=== PATIENT | female | born 1965 | race African-American/Black ===

== ENCOUNTER 2017-09-19 09:37 | Emergency (ER) | payer SELFPAY ==
[2017-09-19] MEDS ORDERED: methylPREDNISolone Acetate 40 mg/ml Vial ONE (10:10)
== END 2017-09-19 10:34 | disposition home or self-care (01) ==
LOC: NAV ERS 09:37
DX: J20.9 Acute bronchitis, unspecified (principal); J44.9 Chronic obstructive pulmonary disease, unspecified; Z87.891 Personal history of nicotine dependence; Z79.899 Other long term (current) drug therapy
CPT/HCPCS: 94640; 96372; J1030; J7620

== ENCOUNTER 2017-11-28 16:29 | Emergency (ER) | payer SELFPAY ==
[~2017-11-28 16:29] MED LIST: Iopamidol 370 76% 100 ML VIAL ONE
[2017-11-28] MEDS ORDERED: Albuterol Sulfate 2.5 mg/3 ml Neb ONE (17:03)
[2017-11-28] MEDS ORDERED: methylPREDNISolone Sod Succ/PF 125 MG/2 ML VIAL ONE (17:03)
[2017-11-28 17:04] LABS: #Basophils 0.1 thou/uL (0.0-0.2); #Eosinphils 0.7 thou/uL (0.0-0.7); #Lymphocytes 2.3 thou/uL (1.20-3.40); #Monocytes 0.5 thou/uL (0.11-0.59); #Neutrophils 4.1 thou/uL (1.40-6.50); %Basophils 1.8 % (0.0-1.0); %Eosinophils 9.2 % (0.0-10.0); %Lymphocytes 29.5 % (21.0-51.0); %Monocytes 6.7 % (0.0-10.0); %Neutrophils 52.8 % (42.0-75.0); Hemoglobin 14.4 g/dL (12.0-16.0); Mean Corpuscular Hemoglobin 27.5 pg (27.0-31.0); Mean Corpuscular Volume 88.7 fL (78.0-98.0); Mean Platelet Volume 8.3 fL (7.4-10.4); Platelet Count 228 thou/uL (130-400); RBC Distribution Width 15.2 % (11.5-14.5); Red Blood Cell (RBC) Count 5.22 mill/uL (4.20-5.40); White Blood Cell (WBC) Count 7.8 thou/uL (4.8-10.8)
[2017-11-28 17:24] LABS: ALT (SGPT) 14 U/L (8-55); AST (SGOT) 15 U/L (5-34); Albumin 4.1 g/dL (3.5-5.0); Alkaline Phosphatase 98 U/L (40-150); Anion Gap 14 mmol/L (10-20); BUN (Urea Nitrogen) 9 mg/dL (9.8-20.1); Bilirubin, Total 0.4 mg/dL (0.2-1.2); Calc. Creatinine Clearance 0 mL/min (70-130); Calcium 9.6 mg/dL (7.8-10.44); Carbon Dioxide 21 mmol/L (22-29); Chloride 105 mmol/L (98-107); Estimated GFR-MDRD Greater than 90; Globulin 3.6 g/dL (2.4-3.5); Glucose 108 mg/dL (70-105); Lipase 12 U/L (8-78); Magnesium 2.2 mg/dL (1.6-2.6); Protein, Total 7.7 g/dL (6.0-8.3); Sodium 136 mmol/L (136-145)
--- NOTE | 2017-11-28 17:24 | RAD ---
PORTABLE AP CHEST X-RAY 11/28/17 HISTORY: Shortness of breath since last night. Worsening shortness of breath. COMPARISON: 07/15/15. FINDINGS: There is increased density to the right lung base which is thought to be related to overlying soft ti ssue artifact and the underpenetrated technique of the study. However, pneumonia or atelectasis right lung base cannot be excluded. Left lung is clear. The cardiac silhouette and pulmonary vasculature a re stable from the prior exam. No other interval change. IMPRESSION: Increased density right lung base most likely attributable to underpenetrated technique of the exam a nd overlying soft tissue density. However, developing pneumonia or atelectasis right lung base cannot be entirely excluded. Repeat chest x-ray with better depth of inspiration and PA technique would be helpful for further evaluation. POS: [facility]
[2017-11-28 17:28] LABS: Troponin I Less than 0.010 ng/mL (< 0.028)
[2017-11-28 17:51] LABS: Bilirubin Negative (Negative); Blood, Urine Trace (Negative); Clarity Clear (Clear); Glucose, Urine (Dipstick) Negative (Negative); Leukocyte Negative (Negative); Nitrite Negative (Negative); Protein, Urine (Dipstick) Negative (Neg-Trace); Urobilinogen 0.2 mg/dL (0.2-1.0)
[2017-11-28 17:59] LABS: Specific Gravity, Urine 1.005 (1.002-1.036)
[2017-11-28 18:00] LABS: Bacteria/HPF None Seen HPF (None Seen); RBC/HPF 0-3 HPF (0-3); Squamous Epithelial None Seen HPF (0-3); WBC/HPF None Seen HPF (0-3)
[2017-11-28] MEDS ORDERED: Azithromycin 250 MG TAB ONE (19:45)
--- NOTE | 2017-11-28 19:45 | CT ---
CT OF ABDOMEN AND PELVIS PERFORMED WITH CONTRAST ENHANCEMENT: 11/28/17 HISTORY: Shortness of breath. Has history of COPD. Notes left sided abdominal pain worsening for the last two days. The lung bases are clear of any infiltrative process. The liver, spleen, pancreas, and gallbladder regions all appear unremarkable. Right and left adrenal glands and right and left kidneys are normal in size. No significant periaorti c or mesenteric adenopathy. No signs of bowel obstruction. CT OF PELVIS PERFORMED WITH CONTRAST ENHANCEMENT: There is a right ovarian cyst measuring 3.2 cm, slightly larger than typically seen, particularly if the patient is postmenopausal. No free fluid. The appendix is normal. There is minimal diverticulosis of the descending and sigmoid colon. IMPRESSION: 1. Diverticulosis without inflammatory change. 2. 3.2 cm right ovarian cyst. This may be better investigated with ultrasound on a nonemergent basis, particularly if the patient is postmenopausal. POS: [facility]
[2017-11-28 20:15] LABS: Troponin I Less than 0.010 ng/mL (< 0.028)
== END 2017-11-28 20:34 | disposition home or self-care (01) ==
LOC: NAV ERS 16:29
DX: J44.1 Chronic obstructive pulmonary disease with (acute) exacerbation (principal); R10.12 Left upper quadrant pain; F17.210 Nicotine dependence, cigarettes, uncomplicated; Z79.899 Other long term (current) drug therapy
CPT/HCPCS: 71045; 74177; 80053; 81003; 81015; 82553; 83605; 83690; 83735; 83880; 84484; 85025; 85379; 87040; 87086; 93005; 94640; 94760; 96374; J2930; J7611; J7620

== ENCOUNTER 2018-01-01 07:23 | Emergency (ER) | payer SELFPAY ==
[2018-01-01] MEDS ORDERED: methylPREDNISolone Sod Succ/PF 125 MG/2 ML VIAL ONE (07:45)
[2018-01-01 08:19] LABS: #Basophils 0.2 thou/uL (0.0-0.2); #Eosinphils 0.8 thou/uL (0.0-0.7); #Lymphocytes 2.9 thou/uL (1.20-3.40); #Monocytes 0.6 thou/uL (0.11-0.59); #Neutrophils 7.1 thou/uL (1.40-6.50); %Basophils 1.7 % (0.0-1.0); %Lymphocytes 24.9 % (21.0-51.0); %Monocytes 4.9 % (0.0-10.0); %Neutrophils 61.5 % (42.0-75.0); Mean Corpuscular HGB CONC 31.8 g/dL (32.0-36.0); Mean Platelet Volume 7.8 fL (7.4-10.4); Platelet Count 368 thou/uL (130-400); RBC Distribution Width 14.9 % (11.5-14.5); Red Blood Cell (RBC) Count 5.02 mill/uL (4.20-5.40); White Blood Cell (WBC) Count 11.6 thou/uL (4.8-10.8)
[2018-01-01 08:28] LABS: ALT (SGPT) 18 U/L (8-55); AST (SGOT) 19 U/L (5-34); Albumin 4.1 g/dL (3.5-5.0); Alkaline Phosphatase 121 U/L (40-150); Anion Gap 14 mmol/L (10-20); BUN (Urea Nitrogen) 9 mg/dL (9.8-20.1); Bilirubin, Total 0.3 mg/dL (0.2-1.2); CK (CPK) 86 U/L (29-168); Calc. Creatinine Clearance 0 mL/min (70-130); Carbon Dioxide 26 mmol/L (22-29); Chloride 100 mmol/L (98-107); Estimated GFR-MDRD Greater than 90; Globulin 4.6 g/dL (2.4-3.5); Glucose 105 mg/dL (70-105); Potassium 4.3 mmol/L (3.5-5.1); Protein, Total 8.7 g/dL (6.0-8.3); Sodium 136 mmol/L (136-145)
[2018-01-01] MEDS ORDERED: Aspirin 325 MG TAB ONE (08:29)
[2018-01-01] MEDS ORDERED: Levofloxacin 500 mg/D5W 100 ml Premix Bag ONE (08:29)
[2018-01-01 08:30] LABS: CKMB 2.1 ng/mL (0-6.6); Troponin I Less than 0.010 ng/mL (< 0.028)
[2018-01-01] MEDS ORDERED: Magnesium Sulfate 2 GM/NS 0.9% 50 ML BAG ONE (08:33)
[2018-01-01] MEDS ORDERED: cefTRIAXone\\ROCEPHIN 1 GM VIAL ONE (08:33)
[2018-01-01] MEDS ORDERED: Iopamidol 370 76% 100 ML VIAL ONE (09:00)
[2018-01-01 09:07] LABS: Bilirubin Negative (Negative); Blood, Urine Trace (Negative); Clarity Clear (Clear); Glucose, Urine (Dipstick) Negative (Negative); Leukocyte Negative (Negative); Nitrite Negative (Negative); Protein, Urine (Dipstick) Negative (Neg-Trace); Urobilinogen 0.2 mg/dL (0.2-1.0); pH, Urine 5.5 (5.0-9.0)
[2018-01-01 09:11] LABS: Specific Gravity, Urine Greater than 1.035 (1.002-1.036)
[2018-01-01 09:13] LABS: Bacteria/HPF None Seen HPF (None Seen); RBC/HPF 0-3 HPF (0-3); Squamous Epithelial 0-3 HPF (0-3); WBC/HPF None Seen HPF (0-3)
--- NOTE | 2018-01-01 09:21 | CT ---
CTA CHEST WITH CONTRAST: Date; 01/01/18 COMPARISON: None. HISTORY: Chest pain and dyspnea. TECHNIQUE: Multiple contiguous axial images were obtained in a CTA of the chest with contrast per pulmonary embo lism protocol. 3D oblique MIP reformats and direct coronal reformats were performed. FINDINGS: Emphysematous changes are seen in the lungs. No pneumothorax or pleural effusion seen. No focal infil trates or suspicious pulmonary nodules are present. The pulmonary arteries are well opacified without filling defects to suggest pulmonary emboli. The he art is normal in size without focal cardiac abnormality. No hilar or mediastinal lymphadenopathy seen . Degenerative changes are seen in the spine. The visualized subdiaphragmatic structures and chest wall soft tissues are unremarkable. IMPRESSION: No evidence of pulmonary thromboembolism. POS: [facility]
--- NOTE | 2018-01-01 09:21 | RAD ---
SINGLE VIEW CHEST: Date: 01/01/18 COMPARISON: 11/28/17. HISTORY: Dyspnea and low oxygen saturation. FINDINGS: Single view of the chest shows a normal sized cardiomediastinal silhouette. There is no evidence of c onsolidation, mass, or pleural effusion. The bones are unremarkable. IMPRESSION: No evidence of acute cardiopulmonary disease. POS: [facility]
== END 2018-01-01 10:08 | disposition short-term general hospital (02) ==
LOC: NAV ERS 07:23
DX: J44.1 Chronic obstructive pulmonary disease with (acute) exacerbation (principal); Z87.891 Personal history of nicotine dependence; Z86.718 Personal history of other venous thrombosis and embolism; Z79.899 Other long term (current) drug therapy
CPT/HCPCS: 36415; 71045; 71275; 80053; 81003; 81015; 82550; 82553; 83605; 84484; 85025; 87040; 87086; 87804; 93005; 94640; 94760; 96365; 96375; J0696; J1956; J2930; J3475; J7620

== ENCOUNTER 2019-03-21 07:45 | Emergency (ER) | payer SELFPAY ==
--- NOTE | 2019-03-21 08:37 | RAD ---
RADIOGRAPH CHEST 1 VIEW: HISTORY: 53-year-old female with dyspnea and cough, with fever. FINDINGS: There are no air space densities, pulmonary edema, pneumothorax, or cardiomegaly. The lateral costop hrenic angles are sharp. IMPRESSION: No acute cardiopulmonary findings. jn [] POS: [facility]
[2019-03-21] MEDS ORDERED: methylPREDNISolone Sod Succ/PF 125 MG/2 ML VIAL ONE (08:45)
[2019-03-21 08:46] LABS: ALT (SGPT) 14 U/L (8-55); AST (SGOT) 13 U/L (5-34); Albumin 3.5 g/dL (3.5-5.0); Alkaline Phosphatase 120 U/L (40-110); Anion Gap 13 mmol/L (10-20); BUN (Urea Nitrogen) 5 mg/dL (9.8-20.1); Bilirubin, Total 0.6 mg/dL (0.2-1.2); Calc. Creatinine Clearance 0 mL/min (70-130); Calcium 8.8 mg/dL (7.8-10.44); Carbon Dioxide 29 mmol/L (22-29); Chloride 96 mmol/L (98-107); Estimated GFR-MDRD Greater than 90; Globulin 4.1 g/dL (2.4-3.5); Glucose 143 mg/dL (70-105); Potassium 3.2 mmol/L (3.5-5.1); Protein, Total 7.6 g/dL (6.0-8.3); Sodium 135 mmol/L (136-145)
[2019-03-21] MEDS ORDERED: Potassium Chloride 20 MEQ TAB ONE (08:54)
[2019-03-21] MEDS ORDERED: Sodium Chloride 0.9% 1,000 ML ONE (08:55)
[2019-03-21 08:57] LABS: Hemoglobin 13.4 g/dL (12.0-16.0); Mean Corpuscular HGB CONC 31.6 g/dL (32.0-36.0); Mean Corpuscular Hemoglobin 27.3 pg (27.0-31.0); Mean Corpuscular Volume 86.5 fL (78.0-98.0); Mean Platelet Volume 8.1 fL (7.4-10.4); Platelet Count 222 thou/uL (130-400); RBC Distribution Width 14.1 % (11.5-14.5); Red Blood Cell (RBC) Count 4.92 mill/uL (4.20-5.40); White Blood Cell (WBC) Count 11.1 thou/uL (4.8-10.8)
[2019-03-21 08:58] LABS: Band 2 % (5-11); Eosinophils 1 % (0-10); Lymphocytes 11 % (21-51); MDiff Complete? YES; Monocytes 4 % (0-10); Neutrophil 82 % (42-75); Platelet Morphology Comment Appears Adequate
[2019-03-21] MEDS ORDERED: Iopamidol 370 76% 100 ML VIAL ONE (09:00)
[2019-03-21] MEDS ORDERED: Levofloxacin 500 mg/D5W 100 ml Premix Bag ONE (10:23)
--- NOTE | 2019-03-21 10:35 | CT ---
CT PULMONARY ANGIOGRAM WITH IV CONTRAST AND 3D POSTPROCESSING: Date: 03/21/2019 HISTORY: Dyspnea. COMPARISON: 01/01/18. FINDINGS: There is better opacification of the thoracic aorta compared to the pulmonary arteries. The attenuati on values in the main pulmonary artery measure 166 Hounsfield units and 210 Hounsfield units in the d escending thoracic aorta. The exam is nondiagnostic to evaluate for pulmonary embolism. No aneurysm or dissection of the thoracic aorta is seen. No pleural or pericardial effusions are iden tified. There are reticulonodular infiltrates in the anterior upper lobes, right greater than left, a nd patchy consolidation in the right middle lobe, lingula, and the lung bases (right greater than lef t). There are degenerative changes in the spine. A small hiatal hernia is present. IMPRESSION: 1. Exam is nondiagnostic for pulmonary embolism. 2. Lung infiltrates as above. POS: [facility]
== END 2019-03-21 10:46 | disposition short-term general hospital (02) ==
LOC: NAV ERS 07:45
DX: J18.9 Pneumonia, unspecified organism (principal); E87.6 Hypokalemia; R79.1 Abnormal coagulation profile; J44.9 Chronic obstructive pulmonary disease, unspecified; Z87.891 Personal history of nicotine dependence; Z86.718 Personal history of other venous thrombosis and embolism; Z79.51 Long term (current) use of inhaled steroids
CPT/HCPCS: 71045; 71275; 80053; 83605; 83880; 84484; 85025; 85379; 87040; 87081; 87430; 87804; 93005; 96361; 96365; 96375; J1956; J2930; J7050; J7620; Q9967

== ENCOUNTER 2020-01-06 07:42 | Emergency (ER) | payer SELFPAY | END 2020-01-06 08:15 | disposition home or self-care (01) | LOC: NAV ERS 07:42 | DX: T16.2XXA Foreign body in left ear, initial encounter (principal); F17.210 Nicotine dependence, cigarettes, uncomplicated; J44.9 Chronic obstructive pulmonary disease, unspecified; Z86.718 Personal history of other venous thrombosis and embolism; Z79.899 Other long term (current) drug therapy | CPT/HCPCS: 69200 ==

== ENCOUNTER 2020-01-18 14:26 | Observation (INO) | payer SELFPAY ==
--- NOTE | 2020-01-18 15:07 | RAD ---
XR Chest 1 View Portable HISTORY: Cough, fever COMPARISON: 12/29/2019 FINDINGS: The heart size is normal. The lungs are well expanded without focal areas of consolidation, pneumothorax or pleural effusions. IMPRESSION: No radiographic evidence of acute cardiopulmonary process.
[2020-01-18 15:15] LABS: #Basophils 0.1 thou/uL (0.0-0.2); #Eosinphils 1.2 thou/uL (0.0-0.7); #Lymphocytes 2.3 thou/uL (1.20-3.40); #Monocytes 0.8 thou/uL (0.11-0.59); #Neutrophils 3.9 thou/uL (1.40-6.50); %Basophils 1.2 % (0.0-1.0); %Eosinophils 14.1 % (0.0-10.0); %Lymphocytes 28.2 % (21.0-51.0); %Neutrophils 47.4 % (42.0-75.0); Differential Comment SCANNED; Hemoglobin 14.1 g/dL (12.0-16.0); Mean Corpuscular HGB CONC 31.1 g/dL (32.0-36.0); Mean Corpuscular Volume 90.1 fL (78.0-98.0); Mean Platelet Volume 8.4 fL (7.4-10.4); Platelet Count 169 thou/uL (130-400); RBC Distribution Width 14.6 % (11.5-14.5); Red Blood Cell (RBC) Count 5.04 mill/uL (4.20-5.40); White Blood Cell (WBC) Count 8.3 thou/uL (4.8-10.8)
[2020-01-18 15:17] LABS: ALT (SGPT) 15 U/L (8-55); AST (SGOT) 17 U/L (5-34); Albumin 3.7 g/dL (3.5-5.0); Alkaline Phosphatase 98 U/L (40-110); Anion Gap 12 mmol/L (10-20); BUN (Urea Nitrogen) 5 mg/dL (9.8-20.1); Bilirubin, Total 0.2 mg/dL (0.2-1.2); Calc. Creatinine Clearance 0 mL/min (70-130); Calcium 8.9 mg/dL (7.8-10.44); Carbon Dioxide 29 mmol/L (22-29); Chloride 101 mmol/L (98-107); Estimated GFR-MDRD Greater than 90; Globulin 4.5 g/dL (2.4-3.5); Glucose 117 mg/dL (70-105); Potassium 3.8 mmol/L (3.5-5.1); Protein, Total 8.2 g/dL (6.0-8.3); Sodium 138 mmol/L (136-145)
[2020-01-18 15:27] LABS: Bilirubin Negative (Negative); Blood, Urine Trace (Negative); Clarity Clear (Clear); Glucose, Urine (Dipstick) Negative (Negative); Ketone, Urine Negative (Negative); Leukocyte Negative (Negative); Nitrite Negative (Negative); Protein, Urine (Dipstick) Negative (Neg-Trace); Specific Gravity, Urine 1.015 (1.005-1.030); Urobilinogen 0.2 mg/dL (Less than 2); pH, Urine 6.5 (5.0-9.0)
[2020-01-18] MEDS ORDERED: Ventolin HFA Inhaler 60 PUFF INHALER ONE (15:35)
[2020-01-18] MEDS ORDERED: Sodium Chloride 0.9% 2,000 ML ONE (15:36)
[2020-01-18] MEDS ORDERED: Azithromycin 500 MG VIAL ONE (15:36)
[2020-01-18] MEDS ORDERED: Ipratropium Bromide 2.5 ml Neb ONE (15:36)
[2020-01-18] MEDS ORDERED: cefTRIAXone\\ROCEPHIN 2 GM VIAL ONE (15:36)
[2020-01-18] MEDS ORDERED: methylPREDNISolone Sod Succ 40 MG VIAL ONE (15:36)
[2020-01-18] MEDS ORDERED: Sodium Chloride 0.9% 250 ML 250 ML ONE (15:37)
[2020-01-18] MEDS ORDERED: Sodium Chloride 0.9% 100 ML ONE (15:37)
[2020-01-18 16:04] LABS: RBC/HPF 0-3 HPF (0-3); Squamous Epithelial 0-3 HPF (0-3); WBC/HPF 0-3 HPF (0-3)
[2020-01-18 17:46] VITALS: BMI 32.5
[2020-01-18] MEDS ORDERED: Ipratropium Bromide 2.5 ml Neb NEB SCH (18:00)
[2020-01-18] MEDS: predniSONE 20 MG TAB PO SCH (20:58)
[2020-01-18] MEDS: Mometasone/Formoterol 200/5 60 PUFF INH SCH (20:59)
[2020-01-18] MEDS: guaiFENesin ER 600 MG TAB PO SCH (20:59)
[2020-01-18] MEDS: Montelukast Sodium 10 mg Tablet PO SCH (20:59)
[2020-01-18] MEDS ORDERED: Ventolin HFA Inhaler 60 PUFF INHALER INH SCH (21:00)
[2020-01-18] MEDS: Acetaminophen 325 MG TAB PO PRN (23:45)
[2020-01-18] MEDS: Benzonatate 100 MG CAP PO PRN (23:45)
[2020-01-19] MEDS: Benzonatate 100 MG CAP PO PRN ×3 (06:03→20:07)
[2020-01-19] MEDS: Ipratropium/Albuterol Sulfate 4 GM AER IH SCH ×3 (07:12→11:54)
[2020-01-19] MEDS: guaiFENesin ER 600 MG TAB PO SCH ×2 (07:48→20:07)
[2020-01-19] MEDS: predniSONE 20 MG TAB PO SCH ×2 (07:48→20:08)
[2020-01-19] MEDS: Mometasone/Formoterol 200/5 60 PUFF INH SCH ×2 (08:03→21:00)
[2020-01-19] MEDS ORDERED: predniSONE 20 MG TAB PO SCH (10:15)
[2020-01-19 12:11] LABS: SARS-CoV-2 MS2 Positive; SARS-CoV-2 N Gene Negative; SARS-CoV-2 S Gene Negative; SARS-CoV-2 by NAA Not Detected (NotDetected); SARS-CoV-2 orf1ab Negative
--- NOTE | 2020-01-19 14:05 | HP ---
HISTORY OF PRESENT ILLNESS: Ms. Gerard is a 54-year-old black female, who presented to the emergency room yesterday with 4 days of what she thinks is a flare of her COPD. She has cough. She has achiness all over. She has been coughing so hard that she has midsternal chest pain. She complains of a fever of 101 to a max yesterday and some chills along with headache. She had diarrhea twice. She vomited also twice with she states small specks of blood. She was brought to the emergency room and evaluated and felt that she had acute exacerbation of her COPD, but she may also have COVID. She was admitted to the hospital for treatment, while we await also what her COVID testing reveals. Vital signs this morning revealed blood pressure 141/104, previously early this morning 123/60, prior to that 159/69. Blood pressure goes up any time she is coughing a lot. Pulse 79 to 96. Respirations 18 to 22. She was 22 when she came in. She was 18 this morning. T-max is 98.6. She is on 3 L of nasal cannula. PAST MEDICAL HISTORY: 1. Reveals the patient has long history of COPD. 2. The patient was previously a tobacco smoker. 3. The patient has had a history of chronic hypoxic respiratory failure in the past and she is on chronic oxygen supplementation at home. 4. Prior history of long ago of cocaine use, which she denies at this time. 5. Chronic hepatitis C. 6. Generalized weakness. PAST SURGICAL HISTORY: 1. Prior . 2. Prior D and C. PRESENT MEDICATIONS: Reveal the patient has the following medications. 1. She has DuoNebs, which she takes p.r.n. 2. Albuterol handheld nebulizers and/or inhalers. 3. Prednisone, which she takes typically 10 mg twice a day. ALLERGIES: REVEALS THE PATIENT IS ALLERGIC TO PENICILLIN. FAMILY HISTORY: Noncontributory. SOCIAL HISTORY: Reveals the patient quit smoking several years ago, it does not say exactly how many. She has rare alcohol intake. She does have a history of cocaine abuse in the distant past. REVIEW OF SYSTEMS: Reveals the patient admits to some fever up to 101 and some chills, but no night sweats. She complains of upper respiratory cough, cold, congestion, and runny nose. She denies change in vision or hearing. She denies any nosebleeds, but she does complain of stuffiness and runny nose. She denies any chest pain, palpitations, or orthopnea, but she does complain of dyspnea on exertion. Respiratory; she does have cough, cold, and some wheezing. She denies hemoptysis. Denies nausea, vomiting, diarrhea, constipation, bloody or black or tarry stools. She has had two episodes of diarrhea and two episodes of vomiting with what she calls little bitty specks of blood. She denies any abdominal pain. ; she denies urgency, frequency, dysuria, or nocturia. Musculoskeletal alberto, she states she just aches all over. Psychiatry; she denies anxiety, depression, or anger at this time. PHYSICAL EXAMINATION: GENERAL: This is a well-developed, morbidly obese, black female, in no apparent distress at this time. HEENT: Reveals normocephalic and nontraumatic cranium. Pupils are equally round and reactive to light. Extraocular movements intact. Conjunctivae reveal no significant injection except for possibly slight from coughing. No icterus is noted. Nose and throat are clear with runny nose. The patient has multiple dental caries and some missing teeth. NECK: Supple without masses, nodes, or bruits. No jugular venous distention is able to be appreciated. CHEST: Reveals coarse rhonchi anteriorly and posteriorly. She has no crackles, but she does have some wheezes, she states that are less than she was last night. HEART: Reveals a regular rate and rhythm without murmurs, gallops, or rubs. ABDOMEN: Morbidly obese, soft, nontender. Normal bowel sounds are noted in all 4 quadrants. No rebound or guarding is noted. : Deferred. EXTREMITIES: Reveal no clubbing, cyanosis, or edema. ASSESSMENT: 1. Most likely acute exacerbation of chronic obstructive pulmonary disease. 2. Possibility of COVID-19. 3. Former tobacco abuse. 4. History of chronic hypoxic respiratory failure, on chronic oxygen supplementation. 5. Generalized weakness. PLAN: 1. The patient has been started on steroids. The patient has been started on MDI inhalers of albuterol, Dulera, and Combivent. 2. The patient will continue on her Singulair 10 mg every evening. 3. The patient is started on Protonix 40 mg daily. 4. The patient is on prednisone 20 mg b.i.d. and the patient has a saline flushing. We will continue with supportive care this time and see if we can have this patient break her COPD exacerbation. We will await COVID-19 results. Job ID: [id number] MTDD
[2020-01-19] MEDS: Acetaminophen 325 MG TAB PO PRN (14:45)
[2020-01-19] MEDS: Montelukast Sodium 10 mg Tablet PO SCH (20:07)
[2020-01-20 07:32] VITALS: BP 142/67; TEMP 98.7
[2020-01-20] MEDS: predniSONE 20 MG TAB PO SCH (08:32)
[2020-01-20] MEDS: Mometasone/Formoterol 200/5 60 PUFF INH SCH (08:32)
[2020-01-20] MEDS: guaiFENesin ER 600 MG TAB PO SCH (08:32)
--- NOTE | 2020-01-21 01:40 | DIS ---
DATE OF ADMISSION: 01/18/2020 DATE OF DISCHARGE: 01/20/2020 Ms. Gerard is a well-developed, well-nourished, pleasant 54-year-old black female. She presented to the emergency room with 4 days of wheezing, cough, and shortness of breath. She is achy all over. She had some midsternal chest pain from a cough and she had a fever of 101 and chills. She also had a headache and she had diarrhea twice. She vomited twice, which she states there had small specks of blood from the amount of vomiting that she had. She was brought to the emergency room, thought to have acute exacerbation of COPD, but they could not rule out COVID. She has been to the hospital had a COVID swab. She was admitted to the [facility] respiratory rooms. She was given IV steroids, Solu-Medrol in the ER, hydration, and MDI inhalers. She was stabilized and actually did very well. This morning, she states she feels back to her normal, actually better than her normal baseline. She states she is not coughing as much. She is still a little wheezy, but that is very common for her. She states she feels good enough that she wants to go home. She states she actually feels better than her usual self. She does not have a primary care doctor because she is waiting on her disability to kick in. She did not realize that [facility] had financial sliding scale medical care and she will go there. 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 She is on oxygen at home at 2 L chronically. Most of her medications that she gets when she goes to the ER. PHYSICAL EXAMINATION: VITAL SIGNS: Today reveal blood pressure this morning 142/67, pulse 86 to 88, respirations 18 to 20, O2 saturation 93% to 98% on 2 L nasal cannula, T-max 98.7. GENERAL: This is a well-developed, well-nourished, obese black female, in no apparent distress at this time. HEENT: Normocephalic and nontraumatic cranium. Pupils are equally round and reactive. Extraocular movements are intact. Nose and throat are slightly dry, but clear. NECK: Supple without masses, nodes, or bruits. No jugular venous distention is noted. CHEST: Reveals occasional wheeze, which clears with cough. No rhonchi heard today. No crackles are noted. She states she is back to her baseline. HEART: Reveals a regular rate and rhythm without murmurs, gallops, or rubs. ABDOMEN: Morbidly obese, soft, and nontender. Normal bowel sounds are noted in all 4 quadrants. No rebound or guarding is noted. : Deferred. EXTREMITIES: Reveal no clubbing, cyanosis, or edema. Her laboratory while in the hospital was unremarkable. ASSESSMENT: 1. Acute exacerbation of chronic obstructive pulmonary disease. 2. Possibility of COVID-19 ruled out with a negative test. 3. Former tobacco abuser. 4. History of chronic hypoxic respiratory failure, on chronic oxygen supplementation 2 L per nasal cannula at home. 5. Generalized weakness. MEDICATIONS: The patient presently takes the following at home: 1. Prednisone 10 mg b.i.d. 2. Atrovent HFA 2 puffs 4 times a day as needed. 3. Tessalon Perles 100 mg q.4 hours p.r.n. 4. Albuterol HFA or Proventil 2 puffs q.6 hours p.r.n. 5. Albuterol nebulizer treatments q.6 hours p.r.n. 6. Mucinex 600 mg b.i.d. p.r.n. 7. Protonix 40 mg daily. 8. Singulair 10 mg every evening. 9. Dulera 1 puff b.i.d. PLAN: We had an extensive discussion with this patient, who states she does not have a primary care doctor. I did recommend that she go to [facility] where she can get good care and discount on her medications. She states she will definitely do that. She just did not realize that they were able to care for her. She states she has been getting all of her care through the ER. The patient is ready to go home and states she will call her sister to pick her up. She does have oxygen at home and she does have an oxygen bottle in her car to be used as needed. Job ID: [id number] MTDD
== END 2020-01-20 12:30 | disposition home or self-care (01) ==
LOC: NAV ERS 14:26 → NAV ACUTE 17:00
PROVIDERS: ADMIT Family Medicine; ATTEND Family Medicine
DX: J44.1 Chronic obstructive pulmonary disease with (acute) exacerbation (principal); J96.11 Chronic respiratory failure with hypoxia; R53.1 Weakness; R50.9 Fever, unspecified; R19.7 Diarrhea, unspecified; B18.2 Chronic viral hepatitis C; E66.01 Morbid (severe) obesity due to excess calories; Z68.32 Body mass index [BMI] 32.0-32.9, adult; Z79.51 Long term (current) use of inhaled steroids; Z87.891 Personal history of nicotine dependence; Z79.899 Other long term (current) drug therapy; Z88.0 Allergy status to penicillin; Z99.81 Dependence on supplemental oxygen; Z20.828 Contact with and (suspected) exposure to other viral communicable diseases
CPT/HCPCS: 71045; 80053; 81003; 81015; 83605; 84484; 85025; 85379; 87040; 87149; 87635; 87804; 93005; 94640; 94760; 96365; 96367; 96375; G0378; J0456; J0696; J2920; J3490; J7050; J7512; J7620; U0003

== ENCOUNTER 2020-11-03 10:06 | Emergency (ER) | payer MEDICAID, OTHER ==
[2020-11-03] MEDS ORDERED: methylPREDNISolone Sod Succ/PF 125 MG/2 ML VIAL ONE (10:41)
[2020-11-03] MEDS ORDERED: Albuterol Sulfate 2.5 mg/3 ml Neb ONE (10:43)
[2020-11-03 10:47] LABS: #Basophils 0.1 thou/uL (0.0-0.2); #Lymphocytes 2.3 thou/uL (1.20-3.40); #Monocytes 0.5 thou/uL (0.11-0.59); %Basophils 0.9 % (0.0-1.0); %Eosinophils 8.9 % (0.0-10.0); %Lymphocytes 21.1 % (21.0-51.0); %Monocytes 4.7 % (0.0-10.0); %Neutrophils 64.4 % (42.0-75.0); Hemoglobin 14.6 g/dL (12.0-16.0); Mean Corpuscular HGB CONC 31.5 g/dL (32.0-36.0); Mean Corpuscular Hemoglobin 27.6 pg (27.0-31.0); Mean Corpuscular Volume 87.7 fL (78.0-98.0); Mean Platelet Volume 8.5 fL (7.4-10.4); Platelet Count 226 thou/uL (130-400); RBC Distribution Width 14.7 % (11.5-14.5); Red Blood Cell (RBC) Count 5.27 mill/uL (4.20-5.40); White Blood Cell (WBC) Count 10.9 thou/uL (4.8-10.8)
[2020-11-03 10:59] LABS: ALT (SGPT) 18 U/L (8-55); AST (SGOT) 14 U/L (5-34); Alkaline Phosphatase 85 U/L (40-110); Anion Gap 13 mmol/L (10-20); BUN (Urea Nitrogen) 8 mg/dL (9.8-20.1); Bilirubin, Total 0.4 mg/dL (0.2-1.2); Calc. Creatinine Clearance 0 mL/min (70-130); Calcium 9.5 mg/dL (7.8-10.44); Carbon Dioxide 28 mmol/L (22-29); Chloride 100 mmol/L (98-107); Globulin 4.2 g/dL (2.4-3.5); Glucose 217 mg/dL (70-105); Protein, Total 8.2 g/dL (6.0-8.3); Sodium 137 mmol/L (136-145)
[2020-11-03 11:12] LABS: Bilirubin Negative (Negative); Blood, Urine Trace (Negative); Clarity Clear (Clear); Glucose, Urine (Dipstick) 100 mg/dL (Negative); Ketone, Urine Negative (Negative); Leukocyte Negative (Negative); Nitrite Negative (Negative); Protein, Urine (Dipstick) Negative (Neg-Trace); Specific Gravity, Urine 1.015 (1.005-1.030); pH, Urine 6.5 (5.0-9.0)
[2020-11-03 11:23] LABS: RBC/HPF 0-3 HPF (0-3); Squamous Epithelial 0-3 HPF (0-3); WBC/HPF 0-3 HPF (0-3)
[2020-11-03] MEDS ORDERED: Sodium Chloride 0.9% 0 ML ONE (11:26)
[2020-11-03] MEDS ORDERED: Sodium Chloride 0.9% 1,000 ML ONE (11:26)
[2020-11-03] MEDS ORDERED: Sulfameth/Trimethoprim DS 800-160mg TAB ONE (12:04)
[2020-11-03] MEDS ORDERED: Azithromycin 250 MG TAB ONE (12:04)
[2020-11-04 23:58] LABS: SARS-CoV-2 PCR by NAA Not Detected (NotDetected)
== END 2020-11-03 12:45 | disposition home or self-care (01) ==
LOC: NAV ERS 10:06
DX: J44.1 Chronic obstructive pulmonary disease with (acute) exacerbation (principal); L03.012 Cellulitis of left finger; R60.0 Localized edema; F17.210 Nicotine dependence, cigarettes, uncomplicated; Z20.822 Contact with and (suspected) exposure to COVID-19; Z86.718 Personal history of other venous thrombosis and embolism; Z79.82 Long term (current) use of aspirin; Z79.899 Other long term (current) drug therapy
CPT/HCPCS: 71045; 80053; 81003; 81015; 83605; 83735; 83880; 84484; 85025; 85379; 87070; 87077; 87186; 87205; 93005; 94640; 94760; 96374; J2930; J7030; J7050; J7611; J7620; U0003; U0005

== ENCOUNTER 2021-02-09 01:25 | Emergency (ER) | payer OTHER ==
[2021-02-09] MEDS ORDERED: methylPREDNISolone Sod Succ/PF 125 MG/2 ML VIAL ONE (01:39)
[2021-02-09] MEDS ORDERED: Nitroglycerin 0.4 MG TAB (25 Tab Bottle) ONE (01:46)
[2021-02-09] MEDS ORDERED: Aspirin Chewable 81 MG TAB ONE (01:46)
[2021-02-09 02:04] LABS: ALT (SGPT) 24 U/L (8-55); AST (SGOT) 19 U/L (5-34); Albumin 3.9 g/dL (3.5-5.0); Alkaline Phosphatase 134 U/L (40-110); Anion Gap 13 mmol/L (10-20); BUN (Urea Nitrogen) 7 mg/dL (9.8-20.1); Bilirubin, Total 0.3 mg/dL (0.2-1.2); Calc. Creatinine Clearance 0 mL/min (70-130); Calcium 9.5 mg/dL (7.8-10.44); Carbon Dioxide 27 mmol/L (22-29); Chloride 100 mmol/L (98-107); Globulin 4.2 g/dL (2.4-3.5); Glucose 192 mg/dL (70-105); Potassium 3.7 mmol/L (3.5-5.1); Protein, Total 8.1 g/dL (6.0-8.3); Sodium 136 mmol/L (136-145)
[2021-02-09] MEDS ORDERED: Levofloxacin 500 mg/D5W 100 ml Premix Bag ONE (02:22)
[2021-02-09 02:23] LABS: Hemoglobin 18.1 g/dL (12.0-16.0); Mean Corpuscular Hemoglobin 27.6 pg (27.0-31.0); Mean Platelet Volume 7.8 fL (7.4-10.4); Platelet Count 177 thou/uL (130-400); RBC Distribution Width 14.1 % (11.5-14.5); Red Blood Cell (RBC) Count 6.56 mill/uL (4.20-5.40); White Blood Cell (WBC) Count 11.1 thou/uL (4.8-10.8)
[2021-02-09 02:45] LABS: SARS-CoV-2 NAA Rapid Test Not Detected (NotDetected)
[2021-02-09] MEDS ORDERED: guaiFENesin ER 600 MG TAB ONE (03:45)
== END 2021-02-09 04:05 | disposition short-term general hospital (02) ==
LOC: NAV ERS 01:25
DX: J44.1 Chronic obstructive pulmonary disease with (acute) exacerbation (principal); J20.9 Acute bronchitis, unspecified; R07.9 Chest pain, unspecified; Z20.822 Contact with and (suspected) exposure to COVID-19; F17.200 Nicotine dependence, unspecified, uncomplicated; Z79.82 Long term (current) use of aspirin; Z79.899 Other long term (current) drug therapy
CPT/HCPCS: 71045; 80053; 83605; 83880; 84484; 85025; 85379; 87040; 87070; 87077; 87205; 93005; 94640; 94760; 96365; 96375; J1956; J2930; J7620; U0002

== ENCOUNTER 2021-04-11 10:23 | Emergency (ER) | payer OTHER | END 2021-04-11 11:21 | disposition left against medical advice (07) | LOC: NAV ERS 10:23 | DX: Z53.21 Procedure and treatment not carried out due to patient leaving prior to being seen by health care provider (principal) ==

== ENCOUNTER 2022-02-09 16:02 | Emergency (ER) | payer OTHER ==
[2022-02-09] MEDS ORDERED: methylPREDNISolone Sod Succ/PF 125 MG/2 ML VIAL ONE (16:24)
[2022-02-09] MEDS ORDERED: Magnesium 2 GM/50 ML BAG (IN WATER) ONE (16:24)
[2022-02-09] MEDS ORDERED: cefTRIAXone\\ROCEPHIN 2 GM VIAL ONE (16:41)
[2022-02-09] MEDS ORDERED: Sodium Chloride 0.9% 0 ML ONE (16:41)
[2022-02-09 16:48] LABS: #Basophils 0.2 thou/uL (0.0-0.2); #Lymphocytes 2.8 thou/uL (1.20-3.40); #Monocytes 0.4 thou/uL (0.11-0.59); #Neutrophils 6.2 thou/uL (1.40-6.50); %Basophils 1.7 % (0.0-1.0); %Eosinophils 9.5 % (0.0-10.0); %Lymphocytes 26.4 % (21.0-51.0); %Monocytes 4.2 % (0.0-10.0); %Neutrophils 58.3 % (42.0-75.0); Hemoglobin 14.9 g/dL (12.0-16.0); Mean Corpuscular HGB CONC 31.6 g/dL (32.0-36.0); Mean Corpuscular Hemoglobin 28.2 pg (27.0-31.0); Mean Corpuscular Volume 89.3 fl (78.0-98.0); Mean Platelet Volume 8.1 fL (7.4-10.4); Platelet Count 198 10x3/uL (130-400); Red Blood Cell (RBC) Count 5.27 mill/uL (4.20-5.40); White Blood Cell (WBC) Count 10.6 10x3/uL (4.8-10.8)
[2022-02-09] MEDS ORDERED: diphenhydrAMINE 50 MG/ML VIAL ONE (16:58)
[2022-02-09 17:00] LABS: ALT (SGPT) 26 U/L (8-55); AST (SGOT) 23 U/L (5-34); Albumin 4.2 g/dL (3.5-5.0); Alkaline Phosphatase 87 U/L (40-110); Anion Gap 16 mmol/L (10-20); BUN (Urea Nitrogen) 11 mg/dL (9.8-20.1); Bilirubin, Total 0.9 mg/dL (0.2-1.2); Calc. Creatinine Clearance 0 mL/min (70-130); Calcium 10.1 mg/dL (7.8-10.44); Carbon Dioxide 26 mmol/L (22-29); Chloride 99 mmol/L (98-107); Estimated GFR 102; Globulin 4.2 g/dL (2.4-3.5); Glucose 127 mg/dL (70-105); Potassium 4.6 mmol/L (3.5-5.1); Protein, Total 8.4 g/dL (6.0-8.3); Sodium 136 mmol/L (136-145)
[2022-02-09] MEDS ORDERED: Sodium Chloride 0.9% 100 ML ONE (17:04)
[2022-02-09] MEDS ORDERED: Sterile Water 20 ML ONE (17:08)
[2022-02-09 17:45] LABS: SARS-CoV-2 NAA Rapid Test Not Detected (NotDetected)
[2022-02-09] MEDS ORDERED: Sodium Chloride 0.9% 250 ML 250 ML ONE (18:46)
[2022-02-09] MEDS ORDERED: Vancomycin HCl 500 MG VIAL ONE (18:46)
[2022-02-09] MEDS ORDERED: Vancomycin 1 GM VIAL ONE (18:46)
[2022-02-09 18:53] LABS: Bilirubin Negative (Negative); Blood, Urine Trace (Negative); Glucose, Urine (Dipstick) Negative (Negative); Ketone, Urine Negative (Negative); Leukocyte Moderate (Negative); Nitrite Negative (Negative); Protein, Urine (Dipstick) Negative (Neg-Trace)
[2022-02-09 19:03] LABS: Clarity SL HAZY (Clear); RBC/HPF 0-3 HPF (0-3); Squamous Epithelial 0-3 HPF (0-3); Trichomonas/HPF 2+ HPF (None Seen)
[2022-02-09] MEDS ORDERED: guaiFENesin/Codeine 200 mg/20 mg 10 ml Cup PO SCH (19:15)
[2022-02-09] MEDS ORDERED: metroNIDAZOLE 500 MG TAB ONE (19:45)
[2022-02-09] MEDS ORDERED: Ondansetron PF 4 MG/2 ML Vial ONE (19:45)
== END 2022-02-09 21:57 | disposition short-term general hospital (02) ==
LOC: NAV ERS 16:02
DX: J44.1 Chronic obstructive pulmonary disease with (acute) exacerbation (principal); J96.91 Respiratory failure, unspecified with hypoxia; A59.9 Trichomoniasis, unspecified; I10 Essential (primary) hypertension; Z20.822 Contact with and (suspected) exposure to COVID-19
CPT/HCPCS: 71045; 80053; 81003; 81015; 83605; 83880; 84484; 85025; 87040; 87086; 93005; 96365; 96367; 96368; 96375; J0696; J1200; J2405; J2930; J3370; J3475; J3490; J7050; J7620

== ENCOUNTER 2022-07-10 18:04 | Emergency (ER) | payer OTHER ==
[2022-07-10] MEDS ORDERED: Magnesium 2 GM/50 ML BAG (IN WATER) ONE (18:22)
[2022-07-10] MEDS ORDERED: Sodium Chloride 0.9% 1,000 ML ONE (18:22)
[2022-07-10] MEDS ORDERED: Ipratropium/Albuterol 3 ML NEB ONE (18:22)
[2022-07-10] MEDS ORDERED: methylPREDNISolone Sod Succ 40 MG VIAL ONE (18:22)
[2022-07-10 18:31] LABS: #Basophils 0.1 thou/uL (0.0-0.2); #Eosinphils 0.4 thou/uL (0.0-0.7); #Monocytes 0.4 thou/uL (0.11-0.59); #Neutrophils 3.8 thou/uL (1.40-6.50); %Basophils 1.3 % (0.0-1.0); %Eosinophils 5.3 % (0.0-10.0); %Lymphocytes 29.7 % (21.0-51.0); %Monocytes 5.9 % (0.0-10.0); %Neutrophils 57.8 % (42.0-75.0); Hemoglobin 15.5 g/dL (12.0-16.0); Mean Corpuscular HGB CONC 30.6 g/dL (32.0-36.0); Mean Corpuscular Hemoglobin 27.3 pg (27.0-31.0); Mean Platelet Volume 8.5 fL (7.4-10.4); Platelet Count 187 10x3/uL (130-400); RBC Distribution Width 14.2 % (11.5-14.5); Red Blood Cell (RBC) Count 5.67 mill/uL (4.20-5.40); White Blood Cell (WBC) Count 6.6 10x3/uL (4.8-10.8)
[2022-07-10 18:33] LABS: INR-International Normal Ratio 0.9; Prothrombin Time 12.3 sec (12.0-14.7)
[2022-07-10 18:36] LABS: D-Dimer Test 0.38 *mcg/mL (0.27-0.43)
[2022-07-10 18:41] LABS: ALT (SGPT) 9 U/L (8-55); AST (SGOT) 11 U/L (5-34); Albumin 4.3 g/dL (3.5-5.0); Alkaline Phosphatase 85 U/L (40-110); Anion Gap 13 mmol/L (10-20); BUN (Urea Nitrogen) 13 mg/dL (9.8-20.1); Bilirubin, Total 0.2 mg/dL (0.2-1.2); Calc. Creatinine Clearance 0 mL/min (70-130); Calcium 9.3 mg/dL (7.8-10.44); Carbon Dioxide 30 mmol/L (22-29); Chloride 101 mmol/L (98-107); Estimated GFR 89; Globulin 3.5 g/dL (2.4-3.5); Glucose 138 mg/dL (70-105); Potassium 4.1 mmol/L (3.5-5.1); Protein, Total 7.8 g/dL (6.0-8.3); Sodium 140 mmol/L (136-145)
== END 2022-07-10 20:00 | disposition home or self-care (01) ==
LOC: NAV ERS 18:04
DX: J44.1 Chronic obstructive pulmonary disease with (acute) exacerbation (principal); I10 Essential (primary) hypertension; E78.5 Hyperlipidemia, unspecified; F17.210 Nicotine dependence, cigarettes, uncomplicated; Z20.822 Contact with and (suspected) exposure to COVID-19
CPT/HCPCS: 71045; 80053; 83605; 83880; 84484; 85025; 85379; 85610; 85730; 87040; 87804; 93005; 96365; 96375; J2920; J3475; J7050; J7611; J7620; U0003; U0005

== ENCOUNTER 2024-02-08 17:37 | Emergency (ER) | payer MEDICAID, MEDICARE, OTHER ==
[2024-02-08] MEDS ORDERED: Acetaminophen 500 MG TAB ONE (17:45)
[2024-02-08] MEDS ORDERED: Ibuprofen 800 MG TAB ONE (17:45)
== END 2024-02-08 18:45 | disposition home or self-care (01) ==
LOC: NAV ERS 17:37
DX: J11.1 Influenza due to unidentified influenza virus with other respiratory manifestations (principal); F17.210 Nicotine dependence, cigarettes, uncomplicated; I10 Essential (primary) hypertension; J44.9 Chronic obstructive pulmonary disease, unspecified; Z79.899 Other long term (current) drug therapy
CPT/HCPCS: 87428; 99284

== ENCOUNTER 2024-03-06 06:59 | Emergency (ER) | payer MEDICARE, MEDICAID ==
[2024-03-06] MEDS ORDERED: Ipratropium/Albuterol 3 ML NEB ONE (07:17)
[2024-03-06] MEDS ORDERED: Dexamethasone 10 MG/ML VIAL ONE (07:17)
[2024-03-06] MEDS ORDERED: Albuterol 2.5 MG (0.5 mL) NEB ONE (07:17)
[2024-03-06] MEDS ORDERED: Magnesium 2 GM/50 ML BAG (IN WATER) ONE (07:18)
[2024-03-06] MEDS ORDERED: LevoFLOXacin 750 mg/D5W 150 ml Premix Bag ONE (07:18)
[2024-03-06] MEDS ORDERED: Sodium Chloride 0.9% 1,000 ML ONE ×2 (07:18→09:07)
[2024-03-06 07:35] LABS: #Basophils 0.1 thou/uL (0.0-0.2); #Eosinophils 0.3 thou/uL (0.0-0.7); #Lymphocytes 1.5 thou/uL (1.20-3.40); #Monocytes 0.8 thou/uL (0.11-0.59); #Neutrophils 3.9 thou/uL (1.40-6.50); %Basophils 1.9 % (0.0-1.0); %Eosinophils 5.2 % (0.0-10.0); %Monocytes 12.5 % (0.0-10.0); %Neutrophils 58.5 % (42.0-75.0); Hematocrit 45.2 % (36.0-47.0); Hemoglobin 13.9 g/dL (12.0-16.0); Mean Corpuscular HGB CONC 30.7 g/dL (32.0-36.0); Mean Corpuscular Hemoglobin 25.9 pg (27.0-31.0); Mean Corpuscular Volume 84.6 fl (78.0-98.0); Mean Platelet Volume 7.7 fL (7.4-10.4); Platelet Count 171 10x3/uL (130-400); Red Blood Cell (RBC) Count 5.34 mill/uL (4.20-5.40); White Blood Cell (WBC) Count 6.7 10x3/uL (4.8-10.8)
[2024-03-06 07:46] LABS: Troponin I Less than 0.010 ng/mL (< 0.028)
[2024-03-06 07:47] LABS: ALT (SGPT) 12 U/L (8-55); AST (SGOT) 16 U/L (5-34); Albumin 3.6 g/dL (3.5-5.0); Alkaline Phosphatase 76 U/L (40-110); Anion Gap 14 mmol/L (10-20); BUN (Urea Nitrogen) 8 mg/dL (9.8-20.1); Bilirubin, Total 0.6 mg/dL (0.2-1.2); Calc. Creatinine Clearance 0 mL/min (70-130); Calcium 9.3 mg/dL (7.8-10.44); Carbon Dioxide 24 mmol/L (22-29); Chloride 99 mmol/L (98-107); Estimated GFR 96; Globulin 4.2 g/dL (2.4-3.5); Glucose 194 mg/dL (70-105); Potassium 4.2 mmol/L (3.5-5.1); Protein, Total 7.8 g/dL (6.0-8.3); Sodium 133 mmol/L (136-145)
[2024-03-06 08:11] LABS: Bilirubin Negative (Negative); Blood, Urine Negative (Negative); Clarity Clear (Clear); Glucose, Urine (Dipstick) 100 mg/dL (Negative); Ketone, Urine Negative (Negative); Leukocyte Negative (Negative); Nitrite Negative (Negative); Protein, Urine (Dipstick) Negative (Neg-Trace)
[2024-03-06 08:14] LABS: Bacteria/HPF None Seen HPF (None Seen); CAUTI Indications for Culture Fever or rigors; RBC/HPF None Seen HPF (0-3); Squamous Epithelial None Seen HPF (0-3); WBC/HPF None Seen HPF (0-3)
[2024-03-06 08:15] LABS: Urine Culture Reflex No No
[2024-03-06] MEDS ORDERED: Acetaminophen 325 MG TAB ONE (08:22)
[2024-03-06] MEDS ORDERED: Sodium Chloride 0.9% 100 ML ONE (09:07)
[2024-03-06] MEDS ORDERED: Cefepime 2 GM VIAL ONE (09:07)
[2024-03-06] MEDS ORDERED: Benzocaine/Menthol 1 LOZ LOZ PO SCH (10:00)
== END 2024-03-06 16:00 | disposition short-term general hospital (02) ==
LOC: NAV ERS 06:59
DX: J44.0 Chronic obstructive pulmonary disease with (acute) lower respiratory infection (principal); J18.9 Pneumonia, unspecified organism; J44.1 Chronic obstructive pulmonary disease with (acute) exacerbation; F17.210 Nicotine dependence, cigarettes, uncomplicated; I10 Essential (primary) hypertension
CPT/HCPCS: 71045; 80053; 81001; 83605; 83880; 84484; 85025; 87040; 87086; 87428; 93005; 94644; J0692; J1100; J1956; J3475; J7030; 36415; 96365; 96367; 96375; J7611; J7620

== ENCOUNTER 2024-05-07 03:23 | Emergency (ER) | payer MEDICARE, MEDICAID ==
[2024-05-07] MEDS ORDERED: fentaNYL 50 mcg/mL 1 mL Vial ONE ×2 (03:46→06:11)
[2024-05-07] MEDS ORDERED: Ondansetron PF 4 MG/2 ML Vial ONE (03:47)
[2024-05-07 04:01] LABS: #Basophils 0.1 thou/uL (0.0-0.2); #Eosinophils 0.5 thou/uL (0.0-0.7); #Lymphocytes 2.4 thou/uL (1.20-3.40); #Monocytes 0.6 thou/uL (0.11-0.59); #Neutrophils 5.6 thou/uL (1.40-6.50); %Eosinophils 5.2 % (0.0-10.0); %Lymphocytes 26.1 % (21.0-51.0); %Monocytes 6.1 % (0.0-10.0); %Neutrophils 61.6 % (42.0-75.0); Hemoglobin 13.9 g/dL (12.0-16.0); Mean Corpuscular HGB CONC 31.7 g/dL (32.0-36.0); Mean Corpuscular Hemoglobin 26.3 pg (27.0-31.0); Mean Platelet Volume 9.4 fL (7.4-10.4); Platelet Count 189 10x3/uL (130-400); RBC Distribution Width 14.2 % (11.5-14.5); White Blood Cell (WBC) Count 9.1 10x3/uL (4.8-10.8)
[2024-05-07 04:16] LABS: Prothrombin Time 13.4 sec (12.0-14.7)
[2024-05-07 04:17] LABS: PTT 25.7 sec (22.9-36.1)
[2024-05-07 04:21] LABS: ALT (SGPT) 15 U/L (Less than 34); AST (SGOT) 24 U/L (11-34); Alkaline Phosphatase 81 U/L (40-110); Anion Gap 14 mmol/L (10-20); BUN (Urea Nitrogen) 7 mg/dL (9.8-20.1); Bilirubin, Total 0.9 mg/dL (0.3-1.2); Calc. Creatinine Clearance 0 mL/min (70-130); Calcium 9.6 mg/dL (7.8-10.44); Carbon Dioxide 23 mmol/L (22-29); Chloride 102 mmol/L (98-107); Estimated GFR 101; Globulin 4.1 g/dL (2.4-3.5); Glucose 117 mg/dL (70-105); Lipase 6 U/L (8-78); Protein, Total 8.1 g/dL (6.0-8.3); Sodium 135 mmol/L (136-145)
[2024-05-07] MEDS ORDERED: Ketorolac Tromethamine 30 MG (1 mL) VIAL ONE (05:26)
[2024-05-07] MEDS ORDERED: Cyclobenzaprine 10 MG TAB ONE (05:27)
[2024-05-07 06:15] LABS: Bilirubin Negative (Negative); Blood, Urine Negative (Negative); Clarity Clear (Clear); Glucose, Urine (Dipstick) Negative (Negative); Ketone, Urine Negative (Negative); Leukocyte Negative (Negative); Nitrite Negative (Negative); Protein, Urine (Dipstick) Negative (Neg-Trace)
[2024-05-07 06:26] LABS: Bacteria/HPF Rare-Few HPF (None Seen); CAUTI Indications for Culture Spinal Cord Injury; RBC/HPF 0-3 HPF (0-3); Squamous Epithelial 0-3 HPF (0-3); Urine Culture Reflex No No; WBC/HPF 0-3 HPF (0-3)
[2024-05-07] MEDS ORDERED: Iopamidol 370 76% 100 ML VIAL ONE (09:00)
== END 2024-05-07 08:41 ==
LOC: NAV ERS 03:23
DX: S22.088A Other fracture of T11-T12 vertebra, initial encounter for closed fracture (principal); S00.83XA Contusion of other part of head, initial encounter; S00.03XA Contusion of scalp, initial encounter; S20.212A Contusion of left front wall of thorax, initial encounter; S50.311A Abrasion of right elbow, initial encounter; I10 Essential (primary) hypertension; J44.9 Chronic obstructive pulmonary disease, unspecified; F17.210 Nicotine dependence, cigarettes, uncomplicated; Z79.51 Long term (current) use of inhaled steroids; V43.63XA Car passenger injured in collision with pick-up truck in traffic accident, initial encounter; Y93.89 Activity, other specified; Y92.410 Unspecified street and highway as the place of occurrence of the external cause
CPT/HCPCS: 36415; 70450; 71260; 72125; 74177; 80053; 81001; 83690; 85025; 85610; 85730; 96374; 96375; 96376; G0390; J1885; J2405; J3010; Q9967

== ENCOUNTER 2025-02-12 11:09 | Emergency (ER) | payer MEDICAID, MEDICARE ==
[2025-02-12] MEDS ORDERED: Albuterol 2.5 MG (0.5 mL) NEB ONE (11:33)
[2025-02-12 11:39] LABS: %Basophils 3.7 % (0.0-1.0)
[2025-02-12 11:40] LABS: #Basophils 0.2 thou/uL (0.0-0.2); #Eosinophils 0.5 thou/uL (0.0-0.7); #Lymphocytes 0.8 thou/uL (1.20-3.40); #Monocytes 0.8 thou/uL (0.11-0.59); #Neutrophils 3.7 thou/uL (1.40-6.50); %Eosinophils 7.9 % (0.0-10.0); %Lymphocytes 13.2 % (21.0-51.0); %Monocytes 14.1 % (0.0-10.0); %Neutrophils 61.1 % (42.0-75.0); Hematocrit 47.9 % (36.0-47.0); Hemoglobin 15.4 g/dL (12.0-16.0); Mean Corpuscular Hemoglobin 27.1 pg (27.0-31.0); Mean Corpuscular Volume 84.5 fl (78.0-98.0); Platelet Count 178 10x3/uL (130-400); Red Blood Cell (RBC) Count 5.67 mill/uL (4.20-5.40); White Blood Cell (WBC) Count 6.0 10x3/uL (4.8-10.8)
[2025-02-12 12:05] LABS: Bicarbonate (HCO3v) 28.8 mmol/L (22.0-28.0); CO2 Tension (PvCO2) 63.1 mmHg (42.0-51.0); Calcium, Ionized 1.25 mmol/L (1.15-1.33); Chloride 105 mmol/L (98-107); Hemoglobin - Calc 16.3 g/dL (12.0-16.0); Potassium 4.1 mmol/L (3.5-5.1); Sodium 144 mmol/L (138-145); T. Carbon Dioxide 30.8 mmol/L (22.0-28.0); vO2 Saturation-calc 73.2 % (60.0-85.0)
[2025-02-12 12:15] LABS: ALT (SGPT) 13 U/L (Less than 34); AST (SGOT) 23 U/L (11-34); Albumin 3.7 g/dL (3.1-4.5); Alkaline Phosphatase 79 U/L (40-110); Anion Gap 13 mmol/L (10-20); BUN (Urea Nitrogen) 7 mg/dL (9.8-20.1); Bilirubin, Total 0.3 mg/dL (0.3-1.2); Calc. Creatinine Clearance 0 mL/min (70-130); Calcium 8.8 mg/dL (7.8-10.44); Carbon Dioxide 26 mmol/L (23-31); Chloride 104 mmol/L (98-107); Globulin 4.1 g/dL (2.4-3.5); Glucose 225 mg/dL (80-115); Magnesium 2.0 mg/dL (1.6-2.6); Potassium 4.1 mmol/L (3.5-5.1); Sodium 139 mmol/L (136-145); Troponin I 0.010 ng/mL (< 0.028)
[2025-02-12 14:40] LABS: Bicarbonate (HCO3v) 28.0 mmol/L (22.0-28.0); CO2 Tension (PvCO2) 66.6 mmHg (42.0-51.0); Calcium, Ionized 1.22 mmol/L (1.15-1.33); Chloride 106 mmol/L (98-107); Hemoglobin - Calc 16.6 g/dL (12.0-16.0); Potassium 3.9 mmol/L (3.5-5.1); Sodium 145 mmol/L (138-145); T. Carbon Dioxide 30.0 mmol/L (22.0-28.0); vO2 Saturation-calc 70.6 % (60.0-85.0)
[2025-02-12] MEDS ORDERED: Magnesium 2 GM/50 ML BAG (IN WATER) ONE (14:47)
== END 2025-02-12 16:23 | disposition short-term general hospital (02) ==
LOC: NAV ERS 11:09
DX: J44.1 Chronic obstructive pulmonary disease with (acute) exacerbation (principal); J96.00 Acute respiratory failure, unspecified whether with hypoxia or hypercapnia; E87.29 Other acidosis; I25.10 Atherosclerotic heart disease of native coronary artery without angina pectoris; I10 Essential (primary) hypertension; F17.210 Nicotine dependence, cigarettes, uncomplicated; Z79.899 Other long term (current) drug therapy
CPT/HCPCS: 36415; 71045; 80053; 82330; 82803; 83605; 83735; 83880; 84484; 85014; 85025; 87040; 87428; 93005; 94660; 94760; 96365; 96375; J2919; J3475; J7030; J7611

== ENCOUNTER 2025-03-05 04:06 | Emergency (ER) | payer MEDICARE ==
[2025-03-05] MEDS ORDERED: Sodium Chloride For Inhalation 0.9% 3 ML NEB ONE (04:42)
[2025-03-05] MEDS ORDERED: Albuterol 2.5 MG (0.5 mL) NEB ONE (04:42)
[2025-03-05] MEDS ORDERED: Albuterol 2.5 MG (3 mL) NEB ONE (05:10)
[2025-03-05 10:51] LABS: Red Blood Cell (RBC) Count 5.09 mill/uL (4.20-5.40); White Blood Cell (WBC) Count 5.7 10x3/uL (4.8-10.8)
[2025-03-05 10:52] LABS: Hematocrit 41.9 % (36.0-47.0); Hemoglobin 13.8 g/dL (12.0-16.0); Mean Corpuscular Hemoglobin 27.2 pg (27.0-31.0); Mean Corpuscular Volume 82.4 fl (78.0-98.0); Platelet Count 203 10x3/uL (130-400)
[2025-03-05 10:54] LABS: ALT (SGPT) Less than 7 U/L (Less than 34); AST (SGOT) 19 U/L (11-34); Albumin 3.4 g/dL (3.1-4.5); Alkaline Phosphatase 74 U/L (40-110); Anion Gap 13 mmol/L (10-20); BUN (Urea Nitrogen) 11 mg/dL (9.8-20.1); Bilirubin, Total 0.4 mg/dL (0.3-1.2); Calc. Creatinine Clearance 0 mL/min (70-130); Calcium 9.0 mg/dL (7.8-10.44); Carbon Dioxide 28 mmol/L (23-31); Chloride 103 mmol/L (98-107); Globulin 4.2 g/dL (2.4-3.5); Glucose 114 mg/dL (80-115); Platelet Adequacy Comment Appears Adequate; Potassium 3.6 mmol/L (3.5-5.1); Sodium 140 mmol/L (136-145)
== END 2025-03-05 17:20 | disposition home or self-care (01) ==
LOC: NAV ERS 04:06
DX: J44.9 Chronic obstructive pulmonary disease, unspecified (principal); J96.11 Chronic respiratory failure with hypoxia; I25.10 Atherosclerotic heart disease of native coronary artery without angina pectoris; I10 Essential (primary) hypertension; Z79.899 Other long term (current) drug therapy; Z87.891 Personal history of nicotine dependence
CPT/HCPCS: 71045; 80053; 85025; 93005; 94760; J7611